=== PATIENT | male | born 1970 | race Caucasian/White ===

== ENCOUNTER 2019-05-01 10:12 | Outpatient (CLI) | payer OTHER ==
--- NOTE | 2019-05-01 10:37 | RAD ---
Radiograph paranasal sinuses 3 views: DATE: 05/01/2019 HISTORY: 48-year-old male with "new daily persistent headache" FINDINGS: No gross opacification of frontal, ethmoid, maxillary, and sphenoid, sinuses are identified (please n ote that plain radiographs are much less sensitive for sinus disease and all other diseases than CT). There are no air-fluid levels in the paranasal sinuses. IMPRESSION: Negative.
== END 2019-05-01 10:13 | disposition home or self-care (01) ==
LOC: BICRAD 10:12
PROVIDERS: ATTEND Family Medicine
DX: G44.52 New daily persistent headache (NDPH) (principal)
CPT/HCPCS: 70220